=== PATIENT | female | born 1990 | race Caucasian/White ===

== ENCOUNTER 2017-11-07 18:50 | Emergency (ER) | payer OTHER ==
[2017-11-07 19:17] VITALS: BP 125/71
[2017-11-07 20:04] LABS: BASOPHILS # (AUTO) 0.1 10^3/uL (0.0-0.1); BASOPHILS % (AUTO) 0.9 %; EOSINOPHILS # (AUTO) 0.2 10^3/uL (0.0-0.7); EOSINOPHILS % (AUTO) 1.7 %; HGB - HEMOGLOBIN 14.1 g/dL (12.0-16.0); LYMPHOCYTES # (AUTO) 3.4 10^3/uL (1.5-3.5); LYMPHOCYTES % (AUTO) 29.1 %; MEAN CORPUSCULAR HGB CONC 32.2 g/dL (32.0-36.0); MEAN CORPUSCULAR VOLUME 83.8 fL (81.0-99.0); MEAN PLATELET VOLUME 8.7 fL (7.9-10.8); MONOCYTES # (AUTO) 0.7 10^3/uL (0.0-1.0); MONOCYTES % (AUTO) 5.8 %; NEUTROPHILS # (AUTO) 7.3 10^3/uL (1.5-6.6); NEUTROPHILS % (AUTO) 62.5 %; PLT - PLATELET COUNT 358 10^3/uL (130-450); RED BLOOD COUNT 5.23 10^6/uL (4.20-5.40); RED CELL DISTRIBUTION WIDTH 13.3 % (12.0-15.0); WHITE BLOOD COUNT 11.7 x10^3/uL (4.8-10.8)
[2017-11-07 20:15] LABS: BILIRUBIN,URINE NEGATIVE (NEGATIVE); GLUCOSE, URINE (UA) >=1000 mg/dL (NEGATIVE); KETONES,URINE (UA) NEGATIVE (NEGATIVE); LEUKOCYTE ESTERASE, URINE NEGATIVE (NEGATIVE); NITRITE,URINE NEGATIVE (NEGATIVE); OCCULT BLOOD,URINE NEGATIVE (NEGATIVE); PROTEIN,URINE NEGATIVE (NEGATIVE); UROBILINOGEN,URINE 0.2 (NORMAL) E.U./dL (NORMAL)
[2017-11-07 20:17] LABS: ALBUMIN 4.6 g/dL (3.2-5.5); ALBUMIN/GLOBULIN RATIO 1.3 (1.0-2.2); ALKALINE PHOSPHATASE 106 IU/L (42-121); ALT ALANINE AMINOTRANSFERASE 21 IU/L (10-60); AST ASPARTATE AMINOTRANSFERASE 17 IU/L (10-42); BILIRUBIN,TOTAL < 0.2 mg/dL (0.2-1.0); BUN - BLOOD UREA NITROGEN 17 mg/dL (6-20); CALCIUM 9.7 mg/dL (8.5-10.3); CARBON DIOXIDE - CO2 28 mmol/L (21-32); CHLORIDE 99 mmol/L (101-111); CREATININE 0.7 mg/dL (0.4-1.0); GFR - MDRD 99 (>89); GLUCOSE 211 mg/dL (70-100); LIPASE 23 U/L (22-51); SODIUM 135 mmol/L (135-145); TOTAL PROTEIN 8.2 g/dL (6.7-8.2)
[2017-11-07 20:18] LABS: CLARITY,URINE CLEAR (CLEAR); HCG UR QUAL NEGATIVE
[2017-11-07] MEDS ORDERED: MAGNESIUM CITRATE 296 ML BOTTLE PO STA (21:18)
--- NOTE | 2017-11-07 21:24 | XRAY Report ---
EXAM: ABDOMEN RADIOGRAPHY EXAM DATE: 11/07/2017 08:54 PM. CLINICAL HISTORY: Abdomen pain. Constipation. COMPARISON: None. TECHNIQUE: 1 view. FINDINGS: Bowel Gas Pattern: Within normal limits. No dilated loops. No excessive stool. Other: Left pelvic phlebolith. Upper pelvic IUD. IMPRESSION: Normal 1-view abdomen x-ray. No excessive stool. [facility] Referring Provider Line: [phone] SITE ID: [id number]
--- NOTE | 2017-11-07 21:34 | ED Physician Documentation ---
PD HPI ABD PAIN - Stated complaint Stated Complaint: CONSTIPATION - Chief complaint Chief Complaint: Abd Pain - History obtained from History obtained from: Patient, Family - History of Present Illness Timing - onset: Today Timing - duration: Days (1) Timing - details: Gradual onset Pain level max: 2 Pain level now: 1 Quality: Other ("bubbly") Location: Epigastric Radiation: Other (Nonradiating) Improved by: Other (nothing) Worsened by: Other (nothing) Associated symptoms: Nausea, Vomiting (once), Constipation (no BM x 2 days) Similar symptoms before: Diagnosis (constipation) Recently seen: Not recently seen Review of Systems Constitutional: denies: Fever, Chills Respiratory: denies: Cough : denies: Now EGA Skin: denies: Rash PD PAST MEDICAL HISTORY - Past Medical History Past Medical History: Yes Endocrine/Autoimmune: Type 1 diabetes, Other GI: Other HEENT: Other Psych: Depression - Past Surgical History Past Surgical History: No - Present Medications Home Medications: Ambulatory Orders Medication Instructions Recorded Confirmed Insulin Lispro [Humalog] 70 unit SQ DAILY 01/18/15 11/07/17 Melatonin/Pyridoxine [Melatonin 3 1 each PO DAILY PRN 01/18/15 11/07/17 mg Tablet] - Allergies Allergies/Adverse Reactions: Allergies Allergy/AdvReac Type Severity Reaction Status Date / Time No Known Drug Allergies Allergy Verified 11/07/17 19:16 - Social History Does the pt smoke?: No Smoking Status: Never smoker Does the pt drink ETOH?: No Does the pt have substance abuse?: No - Immunizations Immunizations are current?: Yes PD ED PE NORMAL - Vitals Vital signs reviewed: Yes - General General: Alert and oriented X 3, No acute distress - HEENT HEENT: Moist mucous membranes - Neck Neck: Supple, no meningeal sign - Cardiac Cardiac: RRR, Strong equal pulses - Respiratory Respiratory: No respiratory distress, Clear bilaterally - Abdomen Abdomen: Normal bowel sounds, Soft, Non tender, Non distended - Back Back: No CVA TTP - Derm Derm: Warm and dry, No rash - Neuro Neuro: Alert and oriented X 3 Results - Vitals Vitals: Vital Signs - 24 hr 11/07/17 19:13 Temperature 36.6 C Heart Rate 68 Respiratory 16 Rate Blood Pressure 125/71 O2 Saturation 100 Oxygen O2 Source Room air - Labs Labs: Laboratory Tests 11/07/17 11/07/17 11/07/17 19:50 19:50 19:59 WBC 11.7 H RBC 5.23 Hgb 14.1 Hct 43.8 MCV 83.8 MCH 27.0 MCHC 32.2 RDW 13.3 Plt Count 358 MPV 8.7 Neut # 7.3 H Lymph # 3.4 Martin # 0.7 Eos # 0.2 Baso # 0.1 Absolute Nucleated RBC 0.00 Nucleated RBC % 0.0 Sodium Potassium Chloride Carbon Dioxide Anion Gap BUN Creatinine Estimated GFR (MDRD) Glucose Calcium Total Bilirubin AST ALT Alkaline Phosphatase Total Protein Albumin Globulin Albumin/Globulin Ratio Lipase Urine Color YELLOW Urine Clarity CLEAR Urine pH 6.0 Ur Specific [place] 1.010 1.010 Urine Protein NEGATIVE Urine Glucose (UA) >=1000 H Urine Ketones NEGATIVE Urine Occult Blood NEGATIVE Urine Nitrite NEGATIVE Urine Bilirubin NEGATIVE Urine Urobilinogen 0.2 (NORMAL) Ur Leukocyte Esterase NEGATIVE Ur Microscopic Review NOT INDICATED Urine Culture Comments NOT INDICATED Urine HCG, Qual NEGATIVE 11/07/17 19:59 WBC RBC Hgb Hct MCV MCH MCHC RDW Plt Count MPV Neut # Lymph # Martin # Eos # Baso # Absolute Nucleated RBC Nucleated RBC % Sodium 135 Potassium 3.9 Chloride 99 L Carbon Dioxide 28 Anion Gap 8.0 BUN 17 Creatinine 0.7 Estimated GFR (MDRD) 99 Glucose 211 H Calcium 9.7 Total Bilirubin < 0.2 L AST 17 ALT 21 Alkaline Phosphatase 106 Total Protein 8.2 Albumin 4.6 Globulin 3.6 Albumin/Globulin Ratio 1.3 Lipase 23 Urine Color Urine Clarity Urine pH Ur Specific [place] Urine Protein Urine Glucose (UA) Urine Ketones Urine Occult Blood Urine Nitrite Urine Bilirubin Urine Urobilinogen Ur Leukocyte Esterase Ur Microscopic Review Urine Culture Comments Urine HCG, Qual - Rads (name of study) KUB Radiology: Prelim report reviewed, EMP read contemporaneously, See rad report ( normal) PD MEDICAL DECISION MAKING - ED course Complexity details: reviewed results, re-evaluated patient, considered differential, d/w patient ED course: Patient is a 27-year-old female who presents to the emergency department with what appears to be constipation. She is tolerating p.o. without difficulty here. No evidence of volvulus, ileus, bowel obstruction. She is diabetic and has been keeping well control of her sugars at home. No evidence of DKA. She is well-appearing, nontoxic. Afebrile. Abdomen is soft, nontender nondistended on serial exam. Will trial on magnesium citrate and see how she progresses. She will return if she worsens. Patient counseled regarding signs and symptoms for which I believe and urgent re-evaluation would be necessary. Patient with good understanding of and agreement to plan and is comfortable going home at this time This document was made in part using voice recognition software. While efforts are made to proofread this document, sound alike and grammatical errors may occur. Departure - Departure Disposition: 01 Home, Self Care Clinical Impression: Constipation Qualifiers: Constipation type: unspecified constipation type Qualified Code(s): K59.00 - Constipation, unspecified Condition: Good Instructions: ED Constipation Follow-Up: Ricky Molina DO [Primary Care Provider] - Within 1 week Comments: Try the magnesium citrate at home. Return if you worsen. Discharge Date/Time: 11/07/17 21:42
== END 2017-11-07 21:42 | disposition home or self-care (01) ==
LOC: ED 18:50
DX: K59.00 Constipation, unspecified (principal); E10.9 Type 1 diabetes mellitus without complications; Z79.4 Long term (current) use of insulin
CPT/HCPCS: 36415; 74018; 80053; 81003; 81025; 83690; 85025; 99283; A9270; 81001; 87086

== ENCOUNTER 2018-06-12 11:26 | Emergency (ER) | payer OTHER ==
[2018-06-12] MEDS ORDERED: IBUPROFEN 800 MG TABLET PO STA (12:23)
--- NOTE | 2018-06-12 12:24 | ED Physician Documentation ---
PD HPI LOWER EXT INJURY - Stated complaint Stated Complaint: LT BIG TOE INJURY - Chief complaint Chief Complaint: Ext Problem - History obtained from History obtained from: Patient - History of Present Illness PD HPI LOW EXT INJURY LOCATION: Left, Toe Type of injury: Blunt / blow Where injury occurred: Work Timing - onset: How many hours ago (1) Worsened by: Palpating Associated symptoms: Swelling, Discolored. No: Weakness, Numbness Contributing factors: Work related Similar symptoms before: Has not had sx before - Additional information Additional information: The patient is a 28-year-old insulin-dependent diabetic female who was at work when the leg of a table buckled, and the table fell, impacting her left big toe. The incident occurred about one hour prior to arrival. She has been ambulatory since the incident occurred, but with pain in her big toe. She denies any other injuries. Vaccinations are up-to-date. Review of Systems Skin: denies: Laceration (s) Musculoskeletal: reports: Extremity pain (left big toe.) Neurologic: denies: Focal weakness, Numbness PD PAST MEDICAL HISTORY - Past Medical History Respiratory: None Endocrine/Autoimmune: Type 1 diabetes, Other GI: Other HEENT: Other Psych: Depression - Past Surgical History Past Surgical History: No - Present Medications Home Medications: Ambulatory Orders Medication Instructions Recorded Confirmed Insulin Lispro [Humalog] 70 unit SQ DAILY 01/18/15 12/03/17 Melatonin/Pyridoxine [Melatonin 3 1 each PO DAILY PRN 01/18/15 12/03/17 mg Tablet] - Allergies Allergies/Adverse Reactions: Allergies Allergy/AdvReac Type Severity Reaction Status Date / Time No Known Drug Allergies Allergy Verified 06/12/18 11:37 - Social History Does the pt smoke?: No Smoking Status: Never smoker Does the pt drink ETOH?: No Does the pt have substance abuse?: No - Immunizations Immunizations are current?: Yes PD ED PE NORMAL - Vitals Vital signs reviewed: Yes (normal) - General General: Alert and oriented X 3, Well developed/nourished - HEENT HEENT: Atraumatic - Respiratory Respiratory: No respiratory distress - Derm Derm: No rash - Extremities Extremities: Other (There is swelling of the left big toe with small subungual hematoma involving less than one third of the toenail at its base. There is no break in the integument. Distal neurovascular is intact.) - Neuro Neuro: Alert and oriented X 3, No motor deficit, No sensory deficit Results - Vitals Vitals: Oxygen O2 Source Room air - Rads (name of study) left big toe Radiology: Prelim report reviewed, EMP read contemporaneously, See rad report ( No fracture or dislocation identified.) PD MEDICAL DECISION MAKING - ED course Complexity details: reviewed results, re-evaluated patient, considered differential, d/w patient, d/w family ED course: The patient's presentation is significant for contusion to the left great toe with small subungual hematoma. There is no evidence of fracture on x-ray examination. Treatment in the emergency department included administration of ibuprofen 800 mg orally. I discussed with the patient and her the expected course of injury, symptomatic treatment and outpatient follow-up, as well as potentially worrisome signs or symptoms that should prompt reevaluation in the emergency department. - Sepsis Event Vital Signs: Oxygen O2 Source Room air Departure - Departure Disposition: 01 Home, Self Care Clinical Impression: Contusion of left great toe with damage to nail Qualifiers: Encounter type: initial encounter Qualified Code(s): S90.212A - Contusion of left great toe with damage to nail, initial encounter Condition: Stable Instructions: ED Contusion Lower Ext Follow-Up: Ricky Molina DO [Primary Care Provider] - Comments: Keep your left foot elevated as much of the time as possible. Apply ice pack intermittently for the next 3 days. You can use ibuprofen, up to 600 mg 3 times daily, for its anti-inflammatory effect. Let pain be your guide to activity level. Follow up with your primary physician within 2 weeks. Call to schedule appointment. Return to the emergency department if you develop any sign of infection, or otherwise worsening symptoms. Forms: Activity restrictions Discharge Date/Time: 06/12/18 13:15
--- NOTE | 2018-06-12 12:54 | XRAY Report ---
Procedure Date: 06/12/2018 Accession Number: [id number] / [id number] Procedure: XR - Foot 3 View LT CPT Code: FULL RESULT: EXAM: LEFT FOOT RADIOGRAPHY EXAM DATE: 06/12/2018 11:55 AM. CLINICAL HISTORY: Trauma to great toe. COMPARISON: None. TECHNIQUE: 3 views. FINDINGS: Bones: Normal. No fractures or bone lesions. Joints: Normal. No subluxations. Soft Tissues: There is soft tissue swelling over the medial great toe. IMPRESSION: No fracture or dislocation is identified. [facility]
[2018-06-12 13:16] VITALS: BP 126/86
== END 2018-06-12 13:15 | disposition home or self-care (01) ==
LOC: ED 11:26
DX: S90.212A Contusion of left great toe with damage to nail, initial encounter (principal); W22.8XXA Striking against or struck by other objects, initial encounter; Y99.0 Civilian activity done for income or pay; E10.9 Type 1 diabetes mellitus without complications
CPT/HCPCS: 1040M; 73630; 99283; A9270; 99282

== ENCOUNTER 2022-07-06 09:29 | Outpatient (CLI) | payer OTHER ==
[2022-07-06 10:10] VITALS: BP 124/64
--- NOTE | 2022-07-06 10:10 | SLEEP CARE CONSULTATION ---
Information from patient questionnaire entered by Kym Melgar. I have reviewed and concur with the information entered by Kym Melgar. This document represents the service I personally performed and the decisions made by me, Roxy Kruse ARNP. History of Present Illness Service Date and Time: 07/06/2022928 Reason for Visit: New patient Chief Complaint: reports: Snoring Date of Onset: NOT SURE Usual bedtime: 10-11PM Time it takes to fall asleep: 10 MINUTES Snores at night: Yes Observed to quit breathing while asleep: No Sleeps alone due to snoring: No Number of times waking at night: 1-2 Reasons for waking at night: reports: Snoring (sometimes), Bathroom. denies: Choking, Gasping for air Toss, Turn, or Twitch while sleeping: Yes (shifts around) Recalls having dreams: Yes Usually gets out of bed at: 9-10AM Feels refreshed in the morning: No (only if does not have an alarm to wake up to) Morning headache: No Sleepy or fatigued during the day: Yes Ever fallen asleep while driving: No Takes day naps: Yes (normally will take a nap 1-few hours, depends on day) Dreams during day naps: Yes Prior sleep studies: No Additional HPI information: I had the pleasure of seeing ONELIA HALEY today regarding the possibility of her having a sleep disorder. Her current complaint is snoring. She states that she visited with her mother while taking care of her grandmother and she was concerned about her daughter's snoring. She states her mother uses a CPAP. Her has not told her she has any pauses in breathing. Patient states that she has to wake up to an alarm she wakes up feeling tired. If she is able to sleep without an alarm, she can wake up feeling rested. She can be tired throughout the day and normally take a nap nearly every day. She varies between 1 hour to a few hours if she is really tired. She denies morning headaches or waking up gasping and choking in her sleep. She has woke herself up snoring before until she started wearing earplugs to dampen the noise. She states before graduating with her degree recently she was taking Adderall to help with her concentration. She was recently changed in April to Bupropion. 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 Patient is and lives in [facility]. Have you smoked in the past 12 months: Yes (Vaping, started in April 2022) Alcohol use: Yes Alcohol amount and frequency: 2 DRINKS, 1-2 TIMES PER MONTH Caffeine use: Yes Caffeine amount and frequency: 2-3 ENERGY DAILY Family History Family history of sleep disordered breathing: Yes Family Hx Sleep Apnea: Mother: Snoring, Sleep apnea - Treated Allergies and Home Medications Known drug allergies: No Drug allergies reviewed: Yes (NKDA) Home medication list reviewed: Yes Allergy and home medication list: Allergies No Known Drug Allergies Allergy (Verified 06/12/18 11:37) Medications: Tylenol PM Duloxetine Buproprion Lorazepam, prn Review of Systems Neurological: reports: headaches Psychiatric: reports: anxiety, depression Ear/Nose/Throat: reports: wisdom teeth removed. denies: tonsillectomy Endocrine: reports: sluggishness, too hot or cold, excessive thirst, increased urination. denies: thyroid disease Musculoskeletal: reports: neck pain Immunologic: reports: allergies to food or environment (grass) Physical Exam Vital signs obtained and entered by: LEE BLAS Blood Pressure: 124/64 (LEFT ARM ) Cuff size: regular Heart Rate: 87 O2 Saturation: 97 Height: 5 ft 1 in Weight: 147 lb Body Mass Index: 27.8 BMI Classification: Overweight Neck circumference: 15 (INCHES) Nostrils: patent to airflow Mouth and throat: narrow oropharynx Soft palate: normal Hard palate: normal Uvula: normal Uvula visualization: 25% Mallampati Class III Tongue: enlarged in size with teeth rosen on lateral edges Tonsils: 1+ Neck: normal w/o lymphadenopathy or thyromegaly Heart: regular rate and rhythm Lungs: clear bilaterally Impression and Plan 1. Suspected Obstructive Sleep Apnea-Hypopnea Syndrome, as suggested by a history of loud and irregular snoring, unrefreshed sleep, cognitive impairment, and excessive daytime sleepiness. Narrow oropharynx and obesity are common predisposing factors for obstructive sleep apnea-hypopnea syndrome. I recommend proceeding to polysomnography to confirm the diagnosis and to assess severity. If the patient has significant sleep disordered breathing, a manual CPAP titration study will also be performed to find the optimal treatment pressure. I informed the patient of what the sleep studies involve and after some discussion, obtained agreement to proceed. The pathophysiology of obstructive sleep apnea-hypopnea syndrome was discussed with the patient and health risks of cardiovascular and cerebrovascular disease if not treated. Risks of drowsy driving discussed in detail and patient advised to avoid long distance driving and to puller machine at the first sign of drowsiness. Patient agreed to plan. * Schedule polysomnography * Avoid long distance driving or driving when feeling sleepy. * Avoid alcohol, sedative and muscle relaxant around bedtime. * Attempt to lose weight. * Review instructions provided by trained office staff on how to prepare for the sleep study. * Return for follow-up after sleep study completed. Counseling Topics: Weight loss health impact Visit Type: In Office Time Spent with Patient (minutes): 30 Provider Statement: I spent 100% of the Face to Face Visit with the patient with greater than 50% spent counseling the patient and coordination of care.
== END 2022-07-06 09:30 | disposition home or self-care (01) ==
LOC: SC 09:29
PROVIDERS: ATTEND Nurse Practitioner Family
DX: R06.83 Snoring (principal); G47.8 Other sleep disorders; G47.10 Hypersomnia, unspecified; E10.9 Type 1 diabetes mellitus without complications; F32.A Depression, unspecified; E66.3 Overweight; Z68.27 Body mass index [BMI] 27.0-27.9, adult; F17.290 Nicotine dependence, other tobacco product, uncomplicated
CPT/HCPCS: 99203; 99212

== ENCOUNTER 2022-07-26 12:39 | Outpatient (CLI) | payer OTHER | END 2022-07-26 12:40 | disposition home or self-care (01) | LOC: SC 12:39 | PROVIDERS: ATTEND Nurse Practitioner Family | DX: G47.33 Obstructive sleep apnea (adult) (pediatric) (principal); R09.02 Hypoxemia | CPT/HCPCS: 95806 ==